=== PATIENT | male | born 1985 | race Two or more races ===

== ENCOUNTER 2018-10-23 22:33 | Emergency (ER) | payer MEDICAID ==
[~2018-10-23] VITALS: Ht 180.3 cm; Wt 88.5 kg
[2018-10-23 22:35] VITALS: BP 176/11
== END 2018-10-23 23:48 | disposition left against medical advice (07) ==
LOC: ER 22:33
DX: M79.604 Pain in right leg (principal); F41.9 Anxiety disorder, unspecified; F17.200 Nicotine dependence, unspecified, uncomplicated; V49.40XA Driver injured in collision with unspecified motor vehicles in traffic accident, initial encounter; Y93.89 Activity, other specified; Y92.410 Unspecified street and highway as the place of occurrence of the external cause
CPT/HCPCS: 99283